=== PATIENT | male | born 2000 | race African-American/Black ===

== ENCOUNTER 2024-11-05 15:56 | Emergency (ER) | payer OTHER ==
--- OUTSIDE RECORDS SUMMARY | 2024-11-05 15:59 | XMS REPORT | Continuity of Care Document ---
Author Name Unknown Address [address] [place] [address] [address] [place] [address] [facility] Address [address] [facility] [address] [place] [address] Care Team Providers Care Board Catcher Name Role Phone MARINA SWIFT Attending Clinician UnavailMABEL Gunn Attending Clinician Unavailable JET RODRIGUEZ Attending Clinician Unavailable MARINA SIWFT Attending Clinician UnavailTATYANA Mendez Attending Clinician Unavailable LAB90 Attending Clinician Unavailable CLIFFORD ROBERTS Attending Clinician Unavail le Payers Payer Name Policy Type Policy Number Effective Date Expirati on Date Source [place] [address] [employer] 94 9 [id number] 2024 00:00:00 Problems Condition Name Condition Details Condition Category Status Onset Date Resolution Date Last Treatment Date Treating Clinician Comments Source Anxiety Anxiety Disease Active 2023-08 00:00: 00 Alana hernandez Exposure to human papillomav irus Exposure to human papillomav irus Disease Active 2023-08 00:00: 00 Alana hernandez Well adult exam Well adult exam Disease Active 2023-08 00:00: 00 Alana hernandez Social History Social Habit Start Date Stop Date Quantity Comments Source Sexual orientation Erica Osullivan - External Alcoholic beverage intake 2024-09-20 00:00:00 2024-09-20 00:00:00 Current drinker of alcohol (finding) Alana Osullivan - External History of Social function 2024-06-29 00:00:00 2024-06-29 00:00:00 Alana Osullivan - External Alcohol Comment 2024-06-29 00:00:00 2024-06-29 00:00:00 socially Alana Mengdaniellemariela - External Sex 2024-06-21 08:45:47 2024-06-21 08:45:47 Male (finding) Alana Osullivan - External Sex assigned at 2000 00:00:00 2000 00:00:00 Alanatatiana Osullivan - External Smoking Status Start Date Stop Date Source Never smoked tobacco Alana Sedaniellemariela - External Medications Ordered Medication Name Filled Medication Name Start Date Stop Date Current Medication? Ordering Clinician Indication Dosage Frequency Signature (SIG) Comments Components Source Ibuprofen (MOTRIN) 100 MG/5ML oral Suspension 09-20 00:00: 00 Yes [id number] 600mg Q.25D Take 30 mL (600 mg total) by mouth 4 times daily. Alana Osullivan - Externa l methylPREDN ISolone 4 MG oral Tablet Therapy Pack 09-20 00:00: 00 Yes [id number] 1{luis} Take 1 luis by mouth See Admin Instructio ns Use as directed. Alana Osullivan - Externa l Immunizations Ordered Immunization Name Filled Immunization Name Date Status Comments Source HPV 9 (Human Papillomavirus) Unknown Completed Alana Downey ld - External HPV 9 (Human Papillomavirus) Unknown Completed Alana Shayan ld - External HPV 9 (Human Papillomavirus) Unknown Completed Alana Downey ld - External Pneumococcal Vaccine, Conjugate 20 Unknown Completed Alana Osullivan - External Vital Signs Vital Name Observation Time Observation Value Comments S ource Systolic blood pressure 2024-09-20 16:37:00 136 mm[Hg] Alana Sedanielleo ld - External Diastolic blood pressure 2024-09-20 16:37:00 78 mm[Hg] Alana Sedanielleo ld - External Heart rate 2024-09-20 16:37:00 101 /min Blakese mariam Mengdaniellemariela - External Body temperature 2024-09-20 16:37:00 36.06 Darcy Alana Osullivan - External Respiratory rate 2024-09-20 16:37:00 15 /min Alanatatiana Osullivan - External Body height 2024-09-20 16:37:00 168.9 cm Ailyn reilly Seybold - External Body weight 2024-09-20 16:37:00 78.472 kg Ailyn reilly Seybold - External BMI 2024-09-20 16:37:00 27.50 kg/m2 Ailyn ey Seybold - External Oxygen saturation in Arterial blood by Pulse oximetry 2024-09-20 16:37:00 96 /min Alana Kellyo ld - External Systolic blood pressure 2024-07-25 19:47:00 126 mm[Hg] Alana Seybo ld - External Diastolic blood pressure 2024-07-25 19:47:00 82 mm[Hg] Alana Seybo ld - External Heart rate 2024-07-25 19:47:00 96 /min Kelse y Seybold - External Body temperature 2024-07-25 19:47:00 36.89 Darcy Alana Seybold - External Respiratory rate 2024-07-25 19:47:00 16 /min Alaan Seybold - External Body height 2024-07-25 19:47:00 168.9 cm Ailyn ey Seybold - External Body weight 2024-07-25 19:47:00 78.472 kg Ailyn ey Seybold - External BMI 2024-07-25 19:47:00 27.50 kg/m2 Ailyn ey Seybold - External Oxygen saturation in Arterial blood by Pulse oximetry 2024-07-25 19:47:00 98 /min Alana Mengybo ld - External Systolic blood pressure 2024-06-29 20:15:00 118 mm[Hg] Alana Seybo ld - External Diastolic blood pressure 2024-06-29 20:15:00 82 mm[Hg] Alana Mengybo ld - External Heart rate 2024-06-29 20:15:00 94 /min Kelse y Seybold - External Body temperature 2024-06-29 20:15:00 35.83 Darcy Alana Seybold - External Respiratory rate 2024-06-29 20:15:00 15 /min Alana Seybold - External Body height 2024-06-29 20:15:00 168.9 cm Ailyn ey Seybold - External Body weight 2024-06-29 20:15:00 76.114 kg Ailyn ey Seybold - External BMI 2024-06-29 20:15:00 26.68 kg/m2 Ailyn ey Seybold - External Procedures Procedure Date / Time Performed Performing Clinicia n Source LS RAPID STREP ASSAY-LAB TEST 2024-09-20 16:59:00 Jet Rodriguez Alana Shi - External Encounters Start Date/Time End Date/Time Encounter Type Admission Type Attending [facility] Care Department Encounter ID Source 2024-12-27 10:00:00 2024-12-27 10:00:00 Outpatient MARINA SWIFT ALANA REESE [id number] Alana Mengybmariela 2024-09-20 14:30:00 2024-09-20 14:30:00 Outpatient MABEL CARDONA [facility] [id number] [facility] 11:00:00 2024-09-20 11:00:00 Outpatient MICHAEL JET [facility]LANA [facility]ESE [id number] [facility]24-07-28 08:30:00 2024-07-28 08:30:00 Outpatient MARINA SWIFT ALANA REESE [id number] [facility] 2024-07-25 14:15:00 2024-07-25 14:15:00 Outpatient TATYANA KIRAN [id number] Alana [facility] 2024-07-14 08:40:00 2024-07-14 08:40:00 Outpatient LAB90 ALANA REESE [id number] Alana [facility] 2024-07-13 00:00:00 2024-07-13 00:00:00 Outpatient CLIFFORD ROBERTS [id number] Alana [facility] 2024-07-13 00:00:00 2024-07-13 00:00:00 Outpatient [facility]IFF[facility] ROBERTS [id number] [facility] 2024-07-12 10:05:00 2024-07-12 10:05:00 Outpatient LAB90 [facility]LANA REESE [id number] [facility] 2024-07-11 00:00:00 2024-07-11 00:00:00 Outpatient CLIFFORD ROBERTS [id number] [facility] 2024-07-04 08:45:00 2024-07-04 08:45:00 Outpatient LAB90 ALANA REESE [id number] [facility] 2024-06-29 14:30:00 2024-06-29 14:30:00 Outpatient CLIFFORD ROBERTS ALANA REESE [id number] Alana Osullivan Notes Date/Time Note Provider Source 2024-09-20 10:40:49 Chief Complaint Patient presents with Sore Throat Sore throat for 2 weeks. No other symptoms. [facility]24-07-25 13:55:08 Chief Complaint Patient presents with Follow-up Elevated blood pressure Yomaira Bloom LVN [facility] 2024-06-29 14:21:22 Chief Complaint Patient presents with Establish Care No PCP within the past 3 years. Here to get established. Vivian Morin MA II [facility]
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
[2024-11-05] MEDS ORDERED: KETOROLAC 30 MG/ML INJ ONE (17:05)
--- NOTE | 2024-11-05 17:11 | RAD REPORT ---
EXAMINATION: ONE VIEW CHEST XR CLINICAL INDICATION: CHEST PAIN TECHNIQUE: Frontal chest projection is submitted. Examination is limited by patient positioning and t echnique. COMPARISON: No prior exam. FINDINGS: Prominent diffuse interstitial markings may indicate bronchitis or reactive airway disease. No focal consolidation typical of pneumonia. The heart is upper limit of normal in size. No displaced fractures identified.
[2024-11-05 17:43] VITALS: BP 154/93; TEMP 98.4; O2SAT 99
== END 2024-11-05 17:35 | disposition home or self-care (01) ==
LOC: ER 15:56
DX: R07.89 Other chest pain (principal)
CPT/HCPCS: 71045; 96372; 99284